=== PATIENT | female | born 1955 | race Two or more races ===

== ENCOUNTER 2018-03-30 06:12 | Day surgery (SDC) | payer MEDICARE, OTHER ==
[2018-03-26 09:42] LABS: BASOPHILS % (AUTO) 0.9 % (0.0-2.0); EOSINOPHILS % (AUTO) 2.4 % (0.0-3.0); HEMATOCRIT 37.2 % (37.0-47.0); HEMOGLOBIN 12.1 G/DL (12.0-16.0); LYMPHOCYTES % (AUTO) 26.2 % (20.0-45.0); MEAN CORPUSCULAR VOLUME 84 FL (80-99); MONOCYTES % (AUTO) 7.7 % (1.0-10.0); NEUTROPHILS % (AUTO) 62.8 % (45.0-75.0); PLATELET COUNT 274 K/UL (150-450); RED BLOOD COUNT 4.41 M/UL (4.20-5.40); RED CELL DISTRIBUTION WIDTH 12.9 % (11.6-14.8); WHITE BLOOD COUNT 7.7 K/UL (4.8-10.8)
[2018-03-26 09:56] LABS: ANION GAP 5 mmol/L (5-15); BLOOD UREA NITROGEN 21 mg/dL (7-18); CALCIUM 9.4 MG/DL (8.5-10.1); CARBON DIOXIDE 25 MMOL/L (21-32); CHLORIDE 107 MMOL/L (98-107); POTASSIUM 4.5 MMOL/L (3.5-5.1); SODIUM 137 MMOL/L (136-145)
--- NOTE | 2018-03-26 19:53 | Cardiology Report ---
APPROVED REPORT EKG Measurement Heart [id number] Normal sinus rhythm Low voltage QRS Borderline ECG
--- NOTE | 2018-03-28 15:02 | Pre-Procedure Note/Attestation ---
Pre-Procedure Note/Attestation Complete Prior to Procedure Planned Procedure: right Procedure Narrative: phaco with IOL Indications for Procedure Pre-Operative Diagnosis: cataract Attestation I attest that I discussed the nature of the procedure; its benefits; risks and complications; and alternatives (and the risks and benefits of such alternatives ), prior to the procedure, with the patient (or the patient's legal customer account representative). I attest that, if there was a reasonable possibility of needing a blood transfusion, the patient (or the patient's legal customer account representative) was given the [facility] standardized written summary, pursuant to the [place] Blood Safety Act ([place] Health and Safety Code # 1645, as amended). I attest that I re-evaluated the patient just prior to the surgery and that there has been no change in the patient's H&P, except as documented below: BELEN MACKENZIE Mar 28, 2018 15:02
--- NOTE | 2018-03-28 15:08 | Opthalmology H&P ---
Ophthalmology H&P H&P Chief Complaint: decreased vision in right eye HPI Vision Affects Ability to: read, focus/use eyes together, manage personal affairs HPI Narrative blurry vision Exam Visual Acuity: OD: 20/60 OS: CF Tension: OD: 15 OS: 19 Eye Exam: normal OU: external exam, palpebral fissure-width, marginal reflex distance, levator function, corneas, anterior chambers; findings: lens - OD: NS OS: IOL, fundus exam - NPDR OU Assessment/Plan Diagnosis: (1) Nuclear age-related cataract, right eye Treatment Plan: cataract extraction w/ lens implant Goals of Treatment: improvement of vision, enhance quality of life Attestation Attestation The risks and benefits of the surgery as well as alternative procedures were explained to the patient in detail. BELEN MACKENZIE Mar 28, 2018 15:08
[2018-03-30] VITALS (9 sets, daily range): BP systolic 98–127; BP diastolic 52–81
[~2018-03-30] VITALS: Ht 152.4 cm; Wt 97.5 kg
[~2018-03-30 06:12] MED LIST: AMITRIPTYLINE100 MG ORAL; BRIMONIDINE TART5 ML BOTH EYES; COSOPT1 DRO2 BOTH EYES; ENALAPRIL MALEA20 MG ORAL; GLIMEPIRIDE1 MG ORAL; LYRICA75 M1 ORAL; TRAMADOL HCL50 MG ORAL; XALATAN2.5 ML BOTH EYES
[2018-03-30] MEDS ORDERED: Proparacaine 0.5% Opth Soln 15ml RIGHT EYE ONE (07:00)
[2018-03-30] MEDS ORDERED: Maxitrol Opth Oint 3.5gm ONE (07:00)
[2018-03-30] MEDS ORDERED: Pilocarpine 2% Opth 15ml Soln ONE (07:00)
[2018-03-30] MEDS ORDERED: Dexamethasone 4mg/ml vial ONE (07:00)
[2018-03-30] MEDS ORDERED: Akten 3.5% 1ml Btl RIGHT EYE ONE (07:00)
[2018-03-30] MEDS ORDERED: Pred Forte 1% Opth Susp 1ml ONE (07:00)
[2018-03-30] MEDS ORDERED: Tetracaine 0.5% Opth 4ml Soln RIGHT EYE ONE (07:00)
[2018-03-30] MEDS ORDERED: BSS 500ml btl ONE (07:34)
[2018-03-30] MEDS ORDERED: Sodium Hyaluronate 14 mg/ml 0.85ml ONE (07:35)
[2018-03-30] MEDS ORDERED: BSS 15ml BTL ONE (07:35)
[2018-03-30] MEDS ORDERED: Povidone-Iodine 5% opth solution ONE (07:35)
[2018-03-30] MEDS: Diclofenac Sod 0.1% Op Soln RIGHT EYE SCH ×3 (07:45→08:01)
[2018-03-30] MEDS: Cyclopentolate 1% Opth Sol 2ml RIGHT EYE SCH ×3 (07:45→08:01)
[2018-03-30] MEDS: Phenylephrine 10% Opth Soln 5ml RIGHT EYE SCH ×3 (07:45→08:01)
[2018-03-30] MEDS: Tobramycin Op Soln 0.3% 5ml RIGHT EYE SCH ×3 (07:45→08:01)
[2018-03-30] MEDS: Tropicamide 1% Opth 15ml Soln RIGHT EYE SCH ×3 (07:45→08:01)
--- NOTE | 2018-03-30 09:22 | Anethesia Preoperative Eval ---
Anesthesia Pre-op PMH/ROS General Date of Evaluation: Mar 30, 2018 Time of Evaluation: 09:49 Anesthesiologist: Emily Villavicencio CRNA ASA Score: ASA 3 Mallampati Score Class I : Soft palate, uvula, fauces, pillars visible Class II: Soft palate, uvula, fauces visible Class III: Soft palate, base of uvula visible Class IV: Only hard plate visible Mallampati Classification: Class II Surgeon: Gaby Diagnosis: RIGHT eye cataract Surgical Procedure: RIGHT eye cataract extraction IOL Anesthesia History: none Family History: no anesthesia problems Allergies: Coded Allergies: PENICILLINS (Verified Allergy, Mild, dizziness; "does not feel well", ) Medications: see eMAR Past Medical History Cardiovascular: Reports: HTN, other - Hyperlipidemia; Denies: CAD, [place], valve dz, arrhythmia Pulmonary: Denies: asthma, COPD, CELESTINO, other Gastrointestinal/Genitourinary: Reports: GERD; Denies: CRI, ESRD, other Neurologic/Psychiatric: Denies: dementia, CVA, depression/anxiety, TIA, other Endocrine: Reports: DM; Denies: hypothyroidism, steroids, other HEENT: Reports: cataract (L), cataract (R), glaucoma; Denies: [place] (L), [place] (R), other Hematology/Immune: Reports: anemia; Denies: DVT, bleeding disorder, other Musculoskeletal/Integumentary: Reports: OA; Denies: RA, DJD, DDD, edema, other Other: obesity PMH Narrative: see above PSxH Narrative: LEFT eye cataract extraction Anesthesia Pre-op Phys. Exam Physician Exam Last Vital Signs Date Time Temp Pulse Resp B/P (MAP) Pulse Ox O2 Delivery O2 Flow Rate FiO2 03/30/18 07:56 Room Air 03/30/18 07:55 98.6 81 18 98/52 (67) 98 98.6 Constitutional: NAD Neurologic: CN 2-12 intact Cardiovascular: RRR Respiratory: CTA Gastrointestinal: S/NT/ND, other - morbidly obese Airway Exam Mallampati Score: Class II MO: full TMD: > 3FB ROM: full Teeth: missing Dentures: upper, lower Anesthesia Pre-op A/P Labs see chart Accucheck 106 Studies Pre-op Studies: EKG - NSR Risk Assessment & Plan Assessment: ASA 3 ok to proceed Plan: MAC Status Change Before Surgery: No Pre-Antibiotics Given Within 1 Hr of Incision: No Emily Villavicencio CRNA Mar 30, 2018 09:22
[2018-03-30] MEDS ORDERED: Midazolam 2mg/2ml Inj ONE (09:57)
[2018-03-30] MEDS ORDERED: Lidocaine 1% MPF 10mg/ml 5ml ONE (10:00)
[2018-03-30] MEDS ORDERED: LR 1000ml ONE (10:00)
[2018-03-30] MEDS ORDERED: Labetalol 5mg/ml 20ml vial IV PRN (10:30)
--- NOTE | 2018-03-30 10:30 | Immediate Post-Op Evaluation ---
Immediate Post-Op Evalulation Immediate Post-Op Evalulation Procedure: RIGHT eye cataract extraction IOL Date of Evaluation: Mar 30, 2018 Time of Evaluation: 10:26 IV Fluids: LR 100 ml Estimated Blood Loss: minimal Blood Pressure Systolic: 121 Blood Pressure Diastolic: 58 Pulse Rate: 80 Respiratory Rate: 18 O2 Sat by Pulse Oximetry: 100 Temperature (Fahrenheit): 97.4 Pain Score (1-10): 0 Nausea: No Vomiting: No Complications none Patient Status: awake, reacts, patent Hydration Status: adequate Given Within 1 Hr of Incision: Emily Otoole CRNA Mar 30, 2018 10:30
--- NOTE | 2018-03-30 11:15 | Pre-op HX & Phy Repo 2 SIG ---
DATE OF ADMISSION: 03/30/2018 PRESURGICAL INTERNAL MEDICINE HISTORY AND PHYSICAL REASON FOR EVALUATION: I was asked by Dr. Ross Griffin to see this 63-year-old female, Khmer speaking, who is going for elective surgery on the right eye. The patient has a cataract, right eye. The patient was evaluated. Chart was reviewed. Please see Ophthalmology History and Physical by Dr. Ross Griffin. PAST MEDICAL HISTORY AND REVIEW OF SYSTEMS: Remarkable for diabetes mellitus type 2, hypertension, history of peripheral neuropathy, history of old phlebitis of lower extremities and dermatitis, degenerative joint disease, and obesity. The patient denied history of pulmonary problem, asthma, or bronchitis. No history of stroke or seizures. Denies history of chest pain, palpitation, or heart attack. No history of thyroid problem. No history of GI bleeding or heartburn. The patient has history of constipation, chronic. The patient denied history of renal failure or dysuria. PAST SURGICAL HISTORY: Cataract, left eye. ALLERGIES: Penicillin. PRESENT MEDICATIONS: Include amitriptyline, 75 mg twice a day, Voltaren eyedrops, and DSS. FAMILY HISTORY: Mother had heart attack. Father from pulmonary emboli. HABITS: The patient denies history of smoke or alcohol habits. PHYSICAL EXAMINATION: GENERAL: The patient is alert. VITAL SIGNS: Blood pressure 110/54, temperature 98.4, pulse 74 and regular, respirations 18, and O2 saturation 98% on room air. The patient's BMI is 42 kg/m2. SKIN: Both [place] dermatitis and phlebitis, old. LYMPH NODES: Not enlarged. HEENT: Head, normocephalic and atraumatic. Ears, clear. No discharge. Eyes, full description per Dr. Ross Griffin. Mouth, clear and moist with dentures upper and lower. NECK: Supple. No jugular venous distention. Carotids artery +2. Trachea midline. No palpable mass. CHEST: No deformity or asymmetry. LUNGS: Clear to auscultation and percussion. No rales or rhonchi. HEART: Sounds distant. No ectopy. No murmur. No S3, S4. ABDOMEN: Soft, obese. Liver and spleen not enlarged. No palpable mass. EXTREMITIES: Degenerative joint disease of knee. The pain on examination. No edema. The patient had bilateral phlebitis, old and dermatitis of both [place]. GENITOURINARY: Normal for gender. No dysuria. No CVA tenderness. NEUROLOGIC: Peripheral diabetic neuropathy. No asymmetry. No tremors. LABORATORY DATA: EKG - normal sinus rhythm at 73 per minute, low-voltage QRS. Followup blood sugar fingerstick is 106. The patient did not eat or drink from last night. White blood cells 7.7, hemoglobin 12.1 mg/dL, and hematocrit 37.2%. Sodium 137, potassium 4.5, BUN 21, creatinine 1.0, estimated GFR 56 mL/min, blood glucose 115, and calcium 9.4. IMPRESSION: 1. Cataract, right eye. 2. 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 3. Hypertension. 4. Morbid obesity. BMI is 42 kg/m2. 5. Peripheral neuropathy, diabetic. 6. Chronic phlebitis, both lower extremities and dermatitis. 7. Degenerative joint disease of knee. PLAN: Cataract extraction, right eye with intraocular lens implant per Dr. Ross Griffin. CONCLUSION: The patient has multiple medical problems including hypertension, diabetes mellitus type 2, morbid obesity, degenerative joint disease of knee, peripheral neuropathy, and phlebitis of lower extremities. The patient's EKG is normal sinus rhythm, which low voltage QRS. The patient did not eat or drink from last night. Vital signs stable. The patient's condition is optimized for surgery. Emmanuel Haider M.D. DR: LINH JOB#: [id number] CC:
--- NOTE | 2018-03-30 12:55 | 48 Hour Post Anesthesia Eval ---
Post Anesthesia Evaluation Procedure: RIGHT eye cataract extraction IOL Date of Evaluation: Mar 30, 2018 Time of Evaluation: 11:00 Blood Pressure Systolic: 113 0: 62 Pulse Rate: 78 Respiratory Rate: 18 Temperature (Fahrenheit): 98 O2 Sat by Pulse Oximetry: 100 Airway: patent Nausea: No Vomiting: No Pain Intensity: 0 Hydration Status: adequate Cardiopulmonary Status: stable Mental Status/LOC: patient returned to baseline Follow-up Care/Observations: f/u with surgeon Post-Anesthesia Complications: none Follow-up care needed: ready to discharge Emily Villavicencio CRNA Mar 30, 2018 12:55
--- NOTE | 2018-04-02 19:30 | Brief Operative Note ---
Immediate Post Operative Note Operative Note Chief Complaint: blurry vision Pre-op Diagnosis: cataract, OD Procedure: Phaco with IOL, OD Post-op Diagnosis: Pseudophakia Post-op Diagnosis: same as pre-op Findings: consistent w/pre-op dx studies Surgeon: Gaby Anesthesiologist: Saud Anesthesia: MAC Specimen: none Complications: none Condition: stable Fluids: LR Estimated Blood Loss: none Drains: none Implant(s) used?: Yes BELEN MACKENZIE Apr 02, 2018 19:30
--- NOTE | 2018-04-02 19:32 | Operative Note - PDOC ---
Operative Note Operative Note Date of Operation/Procedure: Mar 30, 2018 Chief Complaint: blurry vision Pre-op Diagnosis: cataract, OD Procedure: Phaco with IOL, OD Post-op Diagnosis: Pseudophakia Post-op Diagnosis: same as pre-op Operative Findings: consistent w/pre-op dx studies Surgeon: Gaby Anesthesiologist: Saud Anesthesia: MAC Specimen: none Complications: none Condition: stable Fluids: LR Estimated Blood Loss: none Drains: none Implant(s) used?: Yes Indications for Procedure cataract Description of Procedure This patient has been complaining visually significant cataract in the affected eye with the best corrected visual acuity under moderate glare conditions worse. The patient complains of difficulties with glare in performing activities of daily living and wants to manage personal affairs with comfort and accuracy and see well enough to move with safety at home and outdoors. The risks, benefits and alternatives of the procedure were discussed with the patient in the office prior to scheduling surgery. All questions from the patient were answered after the surgical procedure was explained in detail. The risks of the procedure as explained to the patient include, but are not limited to, pain, infection, bleeding, loss of vision, retinal detachment, need for further surgery, loss of lens nucleus, double vision, etc. Alternative procedures were discussed which include, to do nothing or seek a second opinion. Informed consent for this procedure was obtained from the patient. The patient was referred to a primary care physician for a cardiopulmonary clearance prior to surgery, after proper evaluation was done patient was properly scheduled for outpatient surgery. The patient was brought to the operating room where the anesthesiologist established I.V. lines and cardiac monitoring leads. Mild intravenous sedation was administered. The patient was then prepared with a 5% solution of povidone- iodine to the conjunctival fornix and lashes, and a 5% solution of povidone- iodine to the lids and periorbital skin. The patient was then draped in the usual sterile fashion. A lid speculum was then placed in the operative eye. A keratome blade was then used to create a biplanar incision into the anterior chamber. Viscoelastics was then instilled into the anterior chamber. A capsulorrhexis was then fashioned with an utrata forceps followed by hydrodissection and hydro delineation of the the lens nucleus with G 27 cannula. Paracentesis incision was made at 3 o'clock with sharp blade. The phacoemulsification unit, after being properly adjusted and tested, was then used to emulsify the nucleus. Residual cortical material was aspirated with the irrigation and aspiration unit. Healon was then instilled into the anterior chamber. The corneal wound was then enlarged to the size of the optic with the abelardo keratome blade. The intraocular lens was then inspected for right power and size and thought to be satisfactory. Then the lens was gently placed in the capsular bag. Positioning within the capsular bag was confirmed by direct visualization. Optic centration was accomplished with a Sinskey hook. Viscoelastics was removed from the anterior chamber using the irrigation and aspiration unit. The corneal wound was then tested for leaks and none were found. The lid speculum were then removed. Sponge and needle counts were correct. An eye patch and shield were placed over the operative eye. The patient was taken to the recovery room in stable condition. There were no complications. The patient tolerated the procedure well. The patient was then transferred to the ambulatory surgery unit in stable and satisfactory condition , was given detailed written instructions and asked to follow up in the office the next day. BELEN MACKENZIE Apr 02, 2018 19:32
== END 2018-03-30 11:50 | disposition home or self-care (01) ==
LOC: SUR 06:12
DX: H25.11 Age-related nuclear cataract, right eye (principal); E11.42 Type 2 diabetes mellitus with diabetic polyneuropathy; I10 Essential (primary) hypertension; L30.9 Dermatitis, unspecified; M17.10 Unilateral primary osteoarthritis, unspecified knee; E66.01 Morbid (severe) obesity due to excess calories; Z68.41 Body mass index [BMI] 40.0-44.9, adult; K21.9 Gastro-esophageal reflux disease without esophagitis; D64.9 Anemia, unspecified; K59.09 Other constipation; I80.9 Phlebitis and thrombophlebitis of unspecified site; Z88.0 Allergy status to penicillin
CPT/HCPCS: 36415; 66984; 80048; 82962; 85025; 85610; 85730; 93005; J1100; J2250; V2632; 94003; 94150